=== PATIENT | female | born 1955 | race Asian ===

== ENCOUNTER 2020-03-05 12:56 | Emergency (ER) | payer OTHER ==
--- NOTE | 2020-03-05 14:07 | RAD REPORT ---
EXAM DESCRIPTION: CT - Head Brain Wo Cont - 03/05/2020 1:37 pm CLINICAL HISTORY: Dizziness COMPARISON: None. TECHNIQUE: Computed axial tomography of the head was obtained. IV contrast was not requested. All CT scans are performed using dose optimization technique as appropriate and may include automated exposure control or mA/KV adjustment according to patient size. FINDINGS: An intracranial bleed is not seen . The ventricles are normal in caliber. No extra-axial fluid collection is noted. Fluid within the sinuses/ mastoids is not seen. IMPRESSION: No acute intracranial abnormality is seen. If patient's symptoms persist MRI of the bra in would be recommended.
[2020-03-05 14:11] LABS: Absolute Lymphocytes (CBC) 2.4 K/uL (0.7-4.9); Hematocrit 29.8 % (36.0-45.0); Lymphocytes % 41.7 % (15.3-44.8); MPV 7.8 fL (7.6-11.3); RBC Red Blood Cell Count 3.46 M/uL (3.86-4.86)
[2020-03-05 14:13] LABS: Protime INR 1.01
--- NOTE | 2020-03-05 14:26 | RAD REPORT ---
EXAM DESCRIPTION: Antony Single View03/05/2020 2:17 pm CLINICAL HISTORY: Vertigo COMPARISON: none FINDINGS: Lungs are mildly hyperaerated. The lungs appear clear of acute infiltrate. The heart is normal size IMPRESSION: No acute abnormalities displayed
[2020-03-05 14:31] LABS: ALT/SGPT 22 U/L (12-78); AST/SGOT 21 U/L (15-37); Albumin 3.8 g/dL (3.4-5.0); Alkaline Phosphatase 38 U/L (45-117); BUN Blood Urea Nitrogen 9 mg/dL (7-18); Bicarbonate 25 mmol/L (21-32); Bilirubin Direct < 0.1 mg/dL (0-0.2); Bilirubin Total 0.4 mg/dL (0.2-1.0); Glucose Level 92 mg/dL (74-106); Magnesium 2.4 mg/dL (1.8-2.4); NT PRO-BNP 45 pg/mL (<125); Potassium 3.5 mmol/L (3.5-5.1); Protein, Total 7.4 g/dL (6.4-8.2); Sodium Level 135 mmol/L (136-145)
--- NOTE | 2020-03-05 14:38 | ER ---
Nurse's Notes [facility] Name: Violeta King Age: 64 yrs Sex: Female : 1955 Arrival Date: 03/05/2020 Time: 12:59 Bed 5 Private MD: Diagnosis: Other peripheral vertigo Presentation: 03/05 13:05 Chief complaint: Patient states: Dizziness for 2 days. + N/V this am. History of ll1 vertigo. + weakness. No fever. Coronavirus screen: Client denies travel out of the [place] in the last 14 days. fatigue, headache, nausea, vomiting. Client presents with at least one sign or symptom that may indicate coronavirus-19. Standard/surgical mask placed on the client. Ebola Screen: Patient denies travel to an Ebola-affected area in the 21 days before illness onset. Initial Sepsis Screen: Does the patient meet any 2 criteria? No. Patient's initial sepsis screen is negative. Risk Assessment: Do you want to hurt yourself or someone else? Patient reports no desire to harm self or others. Onset of symptoms was March 04, 2020. 13:05 Method Of Arrival: Ambulatory ll1 13:05 Acuity: SWETHA 3 ll1 13:55 Initial Sepsis Screen: Does the patient have a suspected source of infection? No. sv Patient's initial sepsis screen is negative. Historical: - Allergies: 13:08 No Known Allergies; ll1 - PMHx: 13:08 Anemia; TIA; ll1 - PSHx: 13:08 hemmroidectomy; ; ll1 - Immunization history:: Flu vaccine is not up to date. - Social history:: Smoking status: Patient denies any tobacco usage or history of. Patient/guardian denies using alcohol, street drugs. Screenin:55 Abuse screen: Denies threats or abuse. Denies injuries from another. Nutritional sv screening: No deficits noted. Tuberculosis screening: No symptoms or risk factors identified. Fall Risk None identified. Assessment: 13:45 General: Appears in no apparent distress. comfortable, well groomed, well developed, sv Behavior is calm, cooperative, appropriate for age. Pain: Denies pain. Neuro: Level of Consciousness is awake, alert, obeys commands, Oriented to person, place, time, situation, Moves all extremities. Full function Gait is steady, Speech is normal, Denies dizziness, but reports she gets dizzy when she gets up and her head feels "full". Respiratory: Airway is patent Respiratory effort is even, unlabored, Respiratory pattern is regular, symmetrical. GI: Reports nausea, vomiting. Derm: Skin is intact, Skin is pink, warm \\T\\ dry. 14:39 Reassessment: Patient appears in no apparent distress at this time. No changes from sv previously documented assessment. Patient and/or family updated on plan of care and expected duration. Pain level reassessed. Patient is alert, oriented x 3, equal unlabored respirations, skin warm/dry/pink. Vital Signs: 13:05 BP 137 / 84; Pulse 64; Resp 17; Temp 98.6; Pulse Ox 100% ; Weight 50.7 kg; Height 4 ft. ll1 11 in. (149.86 cm); Pain 0/10; 14:11 BP 121 / 74; Pulse 69; Resp 19; Pulse Ox 100% on R/A; sv 14:39 BP 117 / 79; Pulse 59 MON; Resp 20; Pulse Ox 100% on R/A; sv 13:05 Body Mass Index 22.58 (50.70 kg, 149.86 cm) ll1 14:39 Sinus bradycardia sv ED Course: 12:59 Patient arrived in ED. mr 13:07 Triage completed. ll1 13:08 Arm band placed on Patient placed in an exam room, on a stretcher. ll1 13:10 Josef Saravia PA is PHCP. jr8 13:11 Gary Denson MD is Attending Physician. jr8 13:37 CT Head Brain wo Cont In Process Unspecified. EDMS 13:47 Maria Del Rosario Lopez, JORDY is Primary Nurse. sv 13:50 Inserted saline lock: 20 gauge in right antecubital area, using aseptic technique. sv Blood collected. Flushed right antecubital with 5 ml normal saline. 13:55 Patient has correct armband on for positive identification. Placed in gown. Bed in low sv position. Call light in reach. Adult w/ patient. monitoring analyst on. Pulse ox on. NIBP on. Door closed. Head of bed elevated. 14:04 X-ray(s) taken. sv 14:17 XRAY Chest (1 view) In Process Unspecified. EDMS 14:25 Awaiting lab results, Awaiting radiology results. sv 14:39 Awaiting disposition, Awaiting re-evaluation by ER provider. sv 14:51 No provider procedures requiring assistance completed. IV discontinued, intact, sv bleeding controlled, No redness/swelling at site. Pressure dressing applied. Administered Medications: 14:38 Drug: Meclizine 25 mg Route: PO; sv 14:51 Follow up: Response: No adverse reaction sv Outcome: 14:38 Discharge ordered by MD. kumari 14:51 Patient left the ED. sv 14:51 Discharged to home ambulatory, with family. sv 14:51 Condition: stable 14:51 Discharge instructions given to patient, family, Instructed on discharge instructions, follow up and referral plans. Demonstrated understanding of instructions, follow-up care. Signatures: Dispatcher [employer] Maria Del Rosario Osman, RN RN Genie Farias ManjitJosef PA PA jr8 Lewis, Lynsay, RN RN ll1
--- NOTE | 2020-03-05 14:38 | EDPHYS ---
Physician Documentation [facility] Name: Violeta King Age: 64 yrs Sex: Female : 1955 Arrival Date: 03/05/2020 Time: 12:59 Bed 5 Private MD: ED Physician Gary Denson HPI: 03/05 14:34 This 64 yrs old Female presents to ER via Ambulatory with complaints of Dizziness.jr8 14:34 The patient presents with lightheadedness. Onset: The symptoms/episode began/occurred jr8 acutely, yesterday. Context: occurred at home. Modifying factors: The symptoms are alleviated by nothing, the symptoms are aggravated by standing up, changing position. Associated signs and symptoms: The patient has no apparent associated signs or symptoms. Severity of symptoms: At their worst the symptoms were mild in the emergency department the symptoms are unchanged. Patient's baseline: Neuro: alert and fully oriented, Motor: no deficits, Ambulation: walks without assistance, Speech: normal. It is unknown whether or not the patient has had similar symptoms in the past. The patient has not recently seen a physician. Family member of patient via translation stated that she has history of vertigo but that the dizziness today felt more like a swimming motion and was different than what she has had in the past. History of TIA and anemia. Was worried that that may be the case instead of her vertigo this time . Historical: - Allergies: 13:08 No Known Allergies; ll1 - PMHx: 13:08 Anemia; TIA; ll1 - PSHx: 13:08 hemmroidectomy; ; ll1 - Immunization history:: Flu vaccine is not up to date. - Social history:: Smoking status: Patient denies any tobacco usage or history of. Patient/guardian denies using alcohol, street drugs. ROS: 14:34 Eyes: Negative for injury, pain, redness, and discharge, ENT: Negative for injury, jr8 pain, and discharge, Neck: Negative for injury, pain, and swelling, Cardiovascular: Negative for chest pain, palpitations, and edema, Respiratory: Negative for shortness of breath, cough, wheezing, and pleuritic chest pain, Abdomen/GI: Negative for abdominal pain, nausea, vomiting, diarrhea, and constipation, Back: Negative for injury and pain, MS/Extremity: Negative for injury and deformity, Skin: Negative for injury, rash, and discoloration. 14:34 Neuro: Positive for dizziness. Exam: 14:34 Eyes: Pupils equal round and reactive to light, extra-ocular motions intact. Lids and jr8 lashes normal. Conjunctiva and sclera are non-icteric and not injected. Cornea within normal limits. Periorbital areas with no swelling, redness, or edema. ENT: Nares patent. No nasal discharge, no septal abnormalities noted. Tympanic membranes are normal and external auditory canals are clear. Oropharynx with no redness, swelling, or masses, exudates, or evidence of obstruction, uvula midline. Mucous membranes moist. Neck: Trachea midline, no thyromegaly or masses palpated, and no cervical lymphadenopathy. Supple, full range of motion without nuchal rigidity, or vertebral point tenderness. No Meningismus. Cardiovascular: Regular rate and rhythm with a normal S1 and S2. No gallops, murmurs, or rubs. Normal PMI, no JVD. No pulse deficits. Respiratory: Lungs have equal breath sounds bilaterally, clear to auscultation and percussion. No rales, rhonchi or wheezes noted. No increased work of breathing, no retractions or nasal flaring. Abdomen/GI: Soft, non-tender, with normal bowel sounds. No distension or tympany. No guarding or rebound. No evidence of tenderness throughout. Back: No spinal tenderness. No costovertebral tenderness. Full range of motion. Skin: Warm, dry with normal turgor. Normal color with no rashes, no lesions, and no evidence of cellulitis. MS/ Extremity: Pulses equal, no cyanosis. Neurovascular intact. Full, normal range of motion. Neuro: Awake and alert, GCS 15, oriented to person, place, time, and situation. Cranial nerves II-XII grossly intact. Motor strength 5/5 in all extremities. Sensory grossly intact. Cerebellar exam normal. Normal gait. Vital Signs: 13:05 BP 137 / 84; Pulse 64; Resp 17; Temp 98.6; Pulse Ox 100% ; Weight 50.7 kg; Height 4 ft. ll1 11 in. (149.86 cm); Pain 0/10; 14:11 BP 121 / 74; Pulse 69; Resp 19; Pulse Ox 100% on R/A; sv 14:39 BP 117 / 79; Pulse 59 MON; Resp 20; Pulse Ox 100% on R/A; sv 13:05 Body Mass Index 22.58 (50.70 kg, 149.86 cm) ll1 14:39 Sinus bradycardia sv MDM: 13:20 Patient medically screened. 14:34 Data reviewed: vital signs, nurses notes, lab test result(s), EKG, radiologic studies, CT scan, plain films. Data interpreted: Pulse oximetry: on room air is 100 %. Interpretation: normal. Counseling: I had a detailed discussion with the patient and/or guardian regarding: the historical points, exam findings, and any diagnostic results supporting the discharge/admit diagnosis, lab results, radiology results, the need for outpatient follow up, a family practitioner, to return to the emergency department if symptoms worsen or persist or if there are any questions or concerns that arise at home. 03/05 13:21 Order name: Basic Metabolic Panel; Complete Time: 14:33 03/05 13:21 Order name: CBC with Diff; Complete Time: 14:03/05 13:21 Order name: LFT's; Complete Time: 14:33 03/05 13:21 Order name: Magnesium; Complete Time: 14:33 03/05 13:21 Order name: NT PRO-BNP; Complete Time: 14:33 03/05 13:21 Order name: PT-INR; Complete Time: 14:17 03/05 13:21 Order name: XRAY Chest (1 view); Complete Time: 14:33 03/05 13:21 Order name: EKG; Complete Time: 13:21 03/05 13:21 Order name: Cardiac monitoring; Complete Time: 13:54 03/05 13:21 Order name: EKG - Nurse/Tech; Complete Time: 13:54 03/05 13:21 Order name: IV Saline Lock; Complete Time: 13:54 03/05 13:21 Order name: CT Head Brain wo Cont; Complete Time: 14:17 03/05 13:21 Order name: Labs collected and sent; Complete Time: 13:54 03/05 13:21 Order name: O2 Per Protocol; Complete Time: 13:55 03/05 13:21 Order name: O2 Sat Monitoring; Complete Time: 13:55 jr8 Administered Medications: 14:38 Drug: Meclizine 25 mg Route: PO; sv 14:51 Follow up: Response: No adverse reaction sv Disposition: 14:58 Co-signature as Attending Physician, Gary Denson MD. rn Disposition: 03/05/20 14:38 Discharged to Home. Impression: Other peripheral vertigo. - Condition is Stable. - Discharge Instructions: Benign Positional Vertigo. - Medication Reconciliation Form, Thank You Letter, Antibiotic Education, Prescription Opioid Use form. - Follow up: Private Physician; When: 5 - 6 days; Reason: Recheck today's complaints, Continuance of care, Re-evaluation by your physician. - Problem is new. - Symptoms have improved. Signatures: Dispatcher [employer] [facility] Maria Del Rosario Lopez RN RN sv Nieto, Roman, MD MD rn Roszak, Josh, PA PA jr8 Reymundo Sorenson RN RN ll1 Corrections: (The following items were deleted from the chart) 14:27 13:21 TYPE AND SCREEN+[id number].BRZ ordered. [facility] 14:51 14:38 03/05/2020 14:38 Discharged to Home. Impression: Other peripheral vertigo. sv Condition is Stable. Forms are Medication Reconciliation Form, Thank You Letter, Antibiotic Education, Prescription Opioid Use. Follow up: Private Physician; When: 5 - 6 days; Reason: Recheck today's complaints, Continuance of care, Re-evaluation by your physician. Problem is new. Symptoms have improved. jr8
[2020-03-05] MEDS ORDERED: MECLIZINE HCL 12.5 MG TAB ONE (14:48)
[2020-03-05 14:57] VITALS: TEMP 98.6; O2SAT 100
[2020-03-05 14:59] VITALS: BP 117/79
== END 2020-03-05 14:51 | disposition home or self-care (01) ==
LOC: ER 12:56
DX: H81.399 Other peripheral vertigo, unspecified ear (principal); Z86.73 Personal history of transient ischemic attack (TIA), and cerebral infarction without residual deficits
CPT/HCPCS: 93005; 85025; 80048; 36415; 83735; 85610; 80076; 83880; 70450; 71045; 99284; J8597